=== PATIENT | male | born 1950 | race Caucasian/White ===

== ENCOUNTER 2021-03-05 06:50 | Day surgery (SDC) | payer MEDICARE ==
[2021-03-05] VITALS (7 sets, daily range): BP systolic 110–122; BP diastolic 70–82; PULSE 65–83; TEMP 97.7
[~2021-03-05] VITALS: Ht 183 cm; Wt 120.0 kg
[~2021-03-05 06:50] MED LIST: CRESTOR 10MG10 MG PO; FLOMAX 0.40.4 MG/CAP PO; PROAIR HFA0.09 MG/AC IH; SINGULAIR 110 MG/TAB PO; TOPROL XL 25MG25 MG PO
[2021-03-05 08:21] LABS: POTASSIUM 4.2 mmol/L (3.4-5.0)
[2021-03-05 08:23] LABS: INR 1.3 (0.8-3.0); PROTHROMBIN TIME 14.5 SECONDS (9.7-12.8)
[2021-03-05] MEDS ORDERED: SINGULAIR 110 MG/TAB PO (08:25)
[2021-03-05] MEDS ORDERED: CRESTOR20 MG PO (08:25)
[2021-03-05] MEDS ORDERED: XARELTO20 MG PO (08:26)
[2021-03-05] MEDS ORDERED: MOBIC15 MG PO (08:26)
[2021-03-05] MEDS ORDERED: LOPRESSOR 225 MG/TAB PO (08:27)
[2021-03-05] MEDS ORDERED: ONE-A-DAY ESSE1 EACH PO (08:28)
[2021-03-05] MEDS ORDERED: VITAMINC1000TA PO (08:29)
[2021-03-05] MEDS ORDERED: PHARMASSURE ZIN50 MG PO (08:29)
[2021-03-05] MEDS ORDERED: VITAMIND3 5000 PO (08:29)
[2021-03-05 09:05] LABS: THYROID STIMULATING HORMONE 2.857 uIU/mL (0.350-4.940)
[2021-03-05] MEDS ORDERED: TAMBOCOR50 MG PO (09:59)
--- NOTE | 2021-03-05 11:25 | NUR ---
DC instructions reviewed with pt and . Both express understanding. Pt has tolerated PO fluids without issue. He is steady on feet in room. INT DC'd with catheter intact. He is assisted out by wheelchair to 's car.
== END 2021-03-05 11:25 | disposition home or self-care (01) ==
LOC: COL.CAR 06:50
PROVIDERS: Internal Medicine Interventional Cardiology
DX: I48.0 Paroxysmal atrial fibrillation (principal); I50.22 Chronic systolic (congestive) heart failure; I82.409 Acute embolism and thrombosis of unspecified deep veins of unspecified lower extremity; I47.2 Ventricular tachycardia; M19.90 Unspecified osteoarthritis, unspecified site; G47.33 Obstructive sleep apnea (adult) (pediatric); I11.0 Hypertensive heart disease with heart failure; J45.909 Unspecified asthma, uncomplicated; Z20.822 Contact with and (suspected) exposure to COVID-19; Z79.899 Other long term (current) drug therapy; Z99.89 Dependence on other enabling machines and devices
CPT/HCPCS: J2704; J7120